=== PATIENT | female | born 1955 | race Caucasian/White ===

== ENCOUNTER 2018-05-21 16:45 | Emergency (ER) | payer OTHER ==
[~2018-05-21] VITALS: Ht 167.6 cm; Wt 72.1 kg
[~2018-05-21 16:45] MED LIST: CALC-1018 PO; IBUP-2213 PO; MULT-1184 PO; OMEP-48 PO
[2018-05-21 16:57] VITALS: BP 171/65
--- NOTE | 2018-05-21 16:59 | NUR ---
pt ambulated to bed 7
--- NOTE | 2018-05-21 17:06 | NUR ---
pt c/o dizziness and n/v since yesterday, denies cp/sob fevers or other complaints. denies pain. hx--htn, high cholesterol meds--metoproloL VSS; PATIENT POSITIONED FOR COMFORT; HOB ELEVATED; BEDRAILS UP X1; BED DOWN. ER MD MADE AWARE OF PT STATUS.
--- NOTE | 2018-05-21 18:14 | NUR ---
Patient being evaluated by physician at bedside.
--- NOTE | 2018-05-21 18:45 | NUR ---
Patient discharged with v/s stable. Written and verbal after care instructions given and explained. Patient verbalized understanding. Ambulatory with steady gait. All questions addressed prior to discharge. Advised to follow up with PMD.
[2018-05-21 18:53] VITALS: BP 171/65
== END 2018-05-21 18:45 | disposition home or self-care (01) ==
LOC: MED 16:45
DX: R42 Dizziness and giddiness (principal); I10 Essential (primary) hypertension; Z79.899 Other long term (current) drug therapy
CPT/HCPCS: 81002; 93005; 99283

== ENCOUNTER 2018-05-23 10:34 | Emergency (ER) | payer OTHER ==
[~2018-05-23] VITALS: Ht 167.6 cm; Wt 52.6 kg
[2018-05-23 10:49] VITALS: BP 151/86
--- NOTE | 2018-05-23 11:20 | NUR ---
62/F BIB FAMILY c/o NAUSEA, PIERRE X 2 MONTH, R LEG NUMBNESS X 1 MONTH. DENIES TRAUMA. HX: HTN, HIGH CHOLESTEROL & GERD. DENIES V/D; SKIN IS PINK/WARM/DRY; AAOX4 WITH EVEN AND STEADY GAIT; LUNGS CLEAR BL. PT DENIES ANY FEVER, CP, SOB, OR COUGH AT THIS TIME; PATIENT STATES PAIN OF 10/10 AT THIS TIME. PATIENT POSITIONED FOR COMFORT; HOB ELEVATED; BEDRAILS UP X2; BED DOWN. ER MD MADE AWARE OF PT STATUS.
[2018-05-23] MEDS ORDERED: KETOROLAC 60 MG/2 ML VIAL IM ONE (11:30)
[2018-05-23 12:25] VITALS: BP 126/72
== END 2018-05-23 12:26 | disposition home or self-care (01) ==
LOC: MED 10:34
DX: R51 Headache (principal); R11.0 Nausea; I10 Essential (primary) hypertension; Z79.899 Other long term (current) drug therapy
CPT/HCPCS: 70450; 81002; 81025; 96372; 99284; J1885

== ENCOUNTER 2020-03-28 06:00 | Day surgery (SDC) | payer OTHER, SELFPAY ==
[~2020-03-28] VITALS: Ht 170.2 cm; Wt 68.0 kg
[2020-03-28] MEDS ORDERED: LIDOCAINE 2% 100 MG/5 ML UJET TP ONE (08:18)
[2020-03-28] MEDS ORDERED: fentaNYL citrate 0.05 MG/ML VIAL ONE (08:18)
[2020-03-28] MEDS ORDERED: fentaNYL citrate 0.05 MG/ML VIAL IVP ONE (09:05)
== END 2020-03-28 08:55 | disposition home or self-care (01) ==
LOC: MDS 06:00 → MFCC 06:29 → MDS 08:55
PROVIDERS: ATTEND Internal Medicine Gastroenterology
DX: Z12.11 Encounter for screening for malignant neoplasm of colon (principal); I10 Essential (primary) hypertension; Z20.828 Contact with and (suspected) exposure to other viral communicable diseases
CPT/HCPCS: 45378; J3010; U0003